=== PATIENT | female | born 1985 ===

== ENCOUNTER 2018-08-30 09:15 | Outpatient (CLI) | payer OTHER ==
--- NOTE | 2018-08-30 09:51 | Diagnostic Imaging Report ---
<p>Your browser does not support iframes.</p> BRAD CUELLO [facility] [address] [facility].[address] [address] Report Submission Date: Aug 30, 2018 9:48:59 AM CHIEF COUNSEL Patient Study Name: LUIGI LOZOYA Date: Aug 30, 2018 9:24:14 AM CHIEF COUNSEL Modality Type: DX Gender: F Description: FOOT 3 VIEWS OR MORE : 81 Institution: [facility] Physician: BRAD CUELLO Exam: Left foot. History: Pain for one year after being struck by baseball. AP and lateral view of the left foot are submitted. No signs of acute fracture or dislocation is seen. No bony erosions are seen. No soft tissue abnormalities identified. Impression: No bony abnormality. Electronically signed on Aug 30, 2018 9:48:59 AM CHIEF COUNSEL by: Alin BANUELOS
== END 2018-08-30 09:17 ==
LOC: RAD 09:15
PROVIDERS: ATTEND Podiatrist Foot & Ankle Surgery
DX: M79.672 Pain in left foot (principal)
CPT/HCPCS: 73630

== ENCOUNTER 2018-09-06 13:03 | Outpatient (CLI) | payer OTHER ==
--- NOTE | 2018-09-07 15:16 | OP Clinic Progress Note ---
SUBJECTIVE: Cherry Odom is a 33-year-old female who presents today with continued pain in her left foot in a similar area near her third metatarsal head area plantarly. The patient has been using her BFO [employer] inserts with offloading metatarsal pad. She does not have any improvement so far that she is aware of. She has been trying to use them faithfully. She also is using some shoes that do not fit the pad and therefore she is not using it some of the time. The patient does not admit to any fevers, chills, nausea, vomiting, shortness of breath or chest pain at this time. The patient admits that she would like to go forward with having the injection to see if it brings any improvement. OBJECTIVE: Vitals: Temperature 99.2 degrees Fahrenheit, heart rate 77, respiration rate 18, blood pressure 151/79. Vascular: 2+ DP and PT pulses, left foot. Capillary refill time is less than 3 seconds to the toes of the left foot. There is no edema noted, left foot. Musculoskeletal: There is still pain on palpation noted a little bit more specifically between the third and fourth metatarsal heads, left foot. There is zero to very mild pain over the dorsal aspect of the third metatarsal head and no pain underneath the third metatarsophalangeal joint plantarly. There is no pain at the fourth metatarsophalangeal joint plantarly either on the left foot. There are no gross abnormalities noted, left foot. There is a Mulders click noted with plantar pressure in the third intermetatarsal space and [id number] squeezing of the metatarsals. Dermatologic: There is no erythema, open lesions, ecchymosis or skin lesions noted, left foot. Neurologic: Light touch sensation is intact to the toes, left foot. Psychiatric: Mental status is grossly normal and affect is normal. ASSESSMENT AND PLAN: 1. 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 2. Left foot pain. PROCEDURE #1: The risks and benefits of a steroid injection in the left third intermetatarsal space just proximal to the metatarsal heads was discussed that include but are not limited to bleeding and infection. The patient knows that the injection may or may not help this pain at this time. Discussion was had regarding timing of when the steroid would kick in and a lapse of time between the numbing medication not helping any more and the steroid kicking in, and the patient is aware. The patient signed the consent and it was placed in the chart. An alcohol swab was utilized to clean the patients left foot in the injection area as mentioned above. A steroid injection consisting of 0.5 mL of 2% lidocaine plain, 0.5 mL of 0.5% Marcaine plain and 0.5 mL of dexamethasone 4 mg/mL and 0.5 mL of triamcinolone 40 mg/mL was injected into the patients left third intermetatarsal space just proximal to the metatarsal heads. Pressure was then applied with mild bleeding and hemostasis was obtained and a Band-Aid was applied. The patient admitted immediate relief upon standing and is excited to see if this helps for awhile. The patient will return in 2-3 weeks in the [facility] clinic to follow up and see how she is doing at that time. She has no further questions or concerns at this time. We will see how she is doing then. Navjot Garcia.P.M. (Dictated/Not Signed) Mary Job#: [id number] MTDD
== END 2018-09-06 13:05 ==
LOC: POD 13:03
PROVIDERS: ATTEND Podiatrist Foot & Ankle Surgery
DX: G57.62 Lesion of plantar nerve, left lower limb (principal); M79.672 Pain in left foot
CPT/HCPCS: 64450; J1100; J2001; J3301; A4554

== ENCOUNTER 2018-10-04 13:52 | Outpatient (CLI) | payer OTHER ==
--- NOTE | 2018-10-08 18:35 | OP Clinic Progress Note ---
SUBJECTIVE: Cherry Odom is a 33-year-old female who presents to the clinic today for follow-up of a recent left third intermetatarsal shaft space steroid injection. The patient has been having what seems to be neuroma pain versus plantar third metatarsophalangeal joint capsule pain. The patient had an injection recently which only lasted a couple days and seemed to get worse again. Due to this, we decided to wait another month and try an injection more specifically in the intermetatarsal head space area plantarly from a dorsal approach and the third metatarsal area. The patient presents today for that injection. She denies any issues but states she is using her boot some of the time but any time she comes out of the boot she starts to have pain again. The patient does not mention any other issues, fevers, chills, nausea, vomiting, shortness of breath or chest pain at this time. OBJECTIVE: Vitals: Heart rate 71, respiration rate 18, blood pressure 124/73, oxygen saturation 96% on room air. Temperature: 98.2 degrees Fahrenheit. Vascular: 2+ DP and PT pulses, left foot. Capillary refill time is less than 3 seconds to the toes of the left foot. There is no edema noted, left foot. Dermatologic: There is no erythema, open lesions or hyperkeratoses noted, left foot. Musculoskeletal: There is pain on palpation noted mostly located at plantar third inner metatarsal space. Very mild pain to palpation also noted at the plantar third metatarsophalangeal joint and the plantar fourth metatarsophalangeal joint. The pain is most noted at the intermetatarsal space, however. There is a positive Mulders click which is very painful on performing this exam. Neurologic: Light touch sensation is intact to the toes, left foot. Psychiatric: Mental status is grossly normal and affect is normal. ASSESSMENT AND PLAN: 1. 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 2. Left foot pain. The risks and benefits of a steroid injection into the left third intermetatarsal head region from a dorsal approach into the plantar space was discussed that include but are not limited to bleeding and infection. The patient understood the risks and benefits and agreed with both written and verbal consent to go forward with the procedure at this time for a steroid injection in that area. The consent was signed and placed in the chart. PROCEDURE #1: An alcohol swab was utilized to cleanse the area of the injection on the dorsal aspect of the third intermetatarsal space. A cold spray was used and an injection of a mixture of 1 mL of 2% lidocaine plain, and 1 mL of 0.5% Marcaine plain and 0.5 mL of dexamethasone 4 mg/mL and 0.75 mL of triamcinolone 40 mg/mL were injected into the patients left third intermetatarsal space between the metatarsal heads and plantar to them in the intermetatarsal space area. The injection was placed in an appropriate position. The patient had immediate relief and had no pain upon standing. The patient had a Band-Aid applied and hemostasis was obtained with pressure before the Band-Aid was applied. The patient will return to the clinic in 3 weeks on a Monday for follow-up and possible preop if this does not seem to be getting any better. I told the patient she is able to go elsewhere if she would like to look into alcohol sclerosing injections of the neuroma and we can also consider an MRI if she would like to confirm that there is a neuroma there. I am confident that this is what is happening and as she is getting relief with the injection already I believe that we are treating a neuroma that the question is how long this steroid injection will last for her. If this does not last very long at all I will recommend a Mortons neuroma excision which we can do in the operating room. We will see her in 3 weeks for a possible preop versus normal follow-up. The patient understands and has no further questions and knows that I do not do sclerosing injections but she can look elsewhere if she is interested in them and I will help her find somebody if she is interested in doing that. Sven Cisneros D.P.M. (Dictated/Not Signed) Mary Job#: [id number] MTDNavjot
== END 2018-10-04 13:53 ==
LOC: POD 13:52
PROVIDERS: ATTEND Podiatrist Foot & Ankle Surgery
DX: G57.62 Lesion of plantar nerve, left lower limb (principal)
CPT/HCPCS: 64450; J1100; J2001; J3301; J3490; A4554

== ENCOUNTER 2018-10-24 08:33 | Outpatient (CLI) | payer OTHER ==
--- NOTE | 2018-10-25 17:09 | OP Clinic Progress Note ---
SUBJECTIVE: Cherry Odom is a 33-year-old female who presents today for a planned preop appointment. The patient presents today and states she would like to discuss if there are any other options first as well as ask questions about surgery before for sure determining surgery. The patient states that her does not want her to have surgery and would rather her do some sort of physical therapy first which she has looked into and has not found any options for treatment of a neuroma in physical therapy. The patient states that she is very strongly leading toward surgery and would like to discuss questions today in that she is unable to do surgery, however, until the very end of November on the or the 12 of December would be the soonest she can do it based on her schedule coming up. The patient does not admit to any fevers, chills, nausea, vomiting, shortness of breath or chest pain at this time. She admits that the most recent injection that she had about 3 weeks ago gave her complete relief for day 1 and then about 50% to 60% better for the next little bit which improved to 70% better while she was using the boot all the time for about 2 weeks. She states that the pain has then continued to worsen and is down to only about 40% improvement overall so far. She is concerned that it is not going to get better and states that it hurts with every step she walks at this point in time. She does not want this any more. She understands that she would be trading pain for numbness and she is happy to make that trade. OBJECTIVE: Vitals: Temperature 98.3 degrees Fahrenheit, heart rate 56, respiration rate 20, blood pressure 119/70, pain 5/10, oxygen saturation 92% on room air. Vascular: 2+ DP and PT pulses, left foot. Capillary refill time is less than 3 seconds to the toes of the left foot. There is no edema noted, left foot. Dermatologic: There is no ecchymosis or erythema, or skin lesions noted, left foot. Musculoskeletal: There is pain on palpation with squeezing between the third and fourth metatarsal heads. This is where she gets the most pain. She also has some pain with a positive Mulders sign. There are no other gross abnormalities noted. There is no pain with range of motion of the third or fourth metatarsophalangeal joints. There was also no abnormal dislocation or hammertoe deformities or digital contractions of the left third or fourth toes. Neurologic: Light touch sensation is intact to the toes, left foot. ASSESSMENT AND PLAN: Mortons neuroma of left third intermetatarsal space, chronic; G57.62. A long discussion was had with the patient with questions regarding preoperative, intraoperative and postoperative plan. She knows that she will be trying to be as non-weightbearing as possible for the first week with some pressure okay but keeping it elevated as much as possible for that first week to week and a half. She would take the first few days of work off if possible. She would be in a surgical shoe for likely 4 weeks minimum but likely would be transitioning into a regular shoe at that 4 week davie. She knows that she would plan on swelling for quite awhile as well. The patient knows that there is an option for sclerosing injections of the nerve and that I do not do those but she can go elsewhere for that if she would like and I can help her find a place if that is what she would like. She is not interested in this and would rather have more definitive treatment with the surgery. The patient would like to plan likely for surgery on 12/05/18 or 12/12/18 when she is back in town from her trips. The patient has had all questions answered at this time and would like to plan on doing an official preop appointment with a full History and Physical that needs to be performed in November in preparation for surgery on one of those 2 days. She knows that it needs to be within 1 month of that surgery. She understands we cannot do it today because the surgery will be too far out. The patient has no further questions or concerns and will continue using her boot as much as she can but presents today in a regular shoe. The patient states overall she has had slight improvement but still has a long ways to go and she would like to go forward with surgery likely. She will talk to her further and she was invited to bring him along on the next appointment if possible so that I could answer any questions he has as well. Return to the clinic sometime in early to middle of November, within 1 month of when we will try and do surgery. We will do a preop appointment at that time in the outpatient clinic. Sven Cisneros, D.P.M. (Dictated/Not Signed) Mary Job#: [id number] MTDD
== END 2018-10-24 08:35 ==
LOC: POD 08:33
PROVIDERS: ATTEND Podiatrist Foot & Ankle Surgery
DX: G57.62 Lesion of plantar nerve, left lower limb (principal)
CPT/HCPCS: 99213